=== PATIENT | female | born 1980 | race Native Hawaiian/Other Pacific Islander ===

== ENCOUNTER 2019-10-20 11:01 | Emergency (ER) | payer OTHER ==
[~2019-10-20] VITALS: Ht 185.4 cm; Wt 113.4 kg
[2019-10-20 11:53] LABS: PLATELET COUNT 304 K/uL (152-353)
[2019-10-20 11:57] LABS: SODIUM 139 mmol/L (136-145)
[2019-10-20 16:30] VITALS: BP 127/66; TEMP 98.1
== END 2019-10-20 16:38 | disposition home or self-care (01) ==
LOC: ED 11:31
PROVIDERS: Emergency Medicine
DX: R10.10 Upper abdominal pain, unspecified (principal); R07.89 Other chest pain
CPT/HCPCS: 80053; 81000; 82150; 82550; 82553; 83690; 84484; 85027; 85379; 93005; 96374; 99284; J1885; J2175; Q9963